=== PATIENT | female | born 1980 | race Two or more races ===

== ENCOUNTER → 2025-09-10 | Outpatient (CLI) | payer MEDICARE, MEDICAID, SELFPAY ==
--- NOTE | 2025-09-10 10:12 | XR_ITS ---
Examination: Shoulder, right, 3 views Technique: Shoulder AP internal rotation, AP external rotation, Y view shoulder, 3 views Exam date and time : September 10, 2025, 1137 hours INDICATION: Right shoulder pain months. FINDINGS: Moderate narrowing glenohumeral joint No shoulder fracture 3 mm AC joint offset age-indeterminate Prominent calcific tendinitis IMPRESSION: Moderate narrowing glenohumeral joint Prominent soft tissue calcific tendinitis
== END | disposition home or self-care (01) ==
PROVIDERS: PCP Nurse Practitioner Family; Referring Provider Nurse Practitioner Family; Visit Provider Nurse Practitioner Family
DX: M25.811 Other specified joint disorders, right shoulder (principal); M75.31 Calcific tendinitis of right shoulder
CPT/HCPCS: 73030